=== PATIENT | female | born 1950 | race African-American/Black ===

== ENCOUNTER → 2016-10-10 | Outpatient (CLI) | payer OTHER | LOC: RAD 02:47 | DX: Z12.31 Encounter for screening mammogram for malignant neoplasm of breast (principal) ==

== ENCOUNTER → 2017-12-11 | Outpatient (CLI) | payer OTHER | LOC: RAD 03:15 | DX: Z12.31 Encounter for screening mammogram for malignant neoplasm of breast (principal) ==